=== PATIENT | female | born 1960 | race Caucasian/White ===

== ENCOUNTER → 2016-11-29 | Outpatient (CLI) | payer BC ==
[~2016-11-29] MED LIST: AMITRIPTYLINE H25 MG PO; FERRO-TIME325 MG PO; FLUCONAZOLE150 M1 PO; FOLIC ACID1 MG PO; METHOTREXATE2.5 MG PO; PREDNISONE5 MG PO; TRIFLUOPERAZINE1 MG PO; ZESTRIL10 MG PO
[2016-11-29 10:57] LABS: BASOPHIL% 0.2 % (0-2.5); EOSINOPHIL# 0.4 X10e3 (0-0.7); EOSINOPHIL% 8.4 % (0.0-7.0); HEMATOCRIT 34.5 % (35.0-45.0); HEMOGLOBIN 10.5 gm/dL (12.0-16.0); LYMPHOCYTE# 1.9 X10e3 (1.0-3.5); LYMPHOCYTE% 36.9 % (17.0-45.0); MEAN CELL VOLUME 71.4 FL (83-96); MEAN CORPUSCULAR HEMOGLOBIN 21.7 PG (28-34); MEAN CORPUSCULAR HGB CONC 30.3 g/dL (30-36); MEAN PLATELET VOLUME 10.5 FL (6.5-11.5); MONOCYTE# 0.5 X10e3 (0-1.0); NEUTROPHIL# 2.4 X10e3 (1.5-7.1); NEUTROPHIL% 45.5 % (40-75); PLATELET COUNT 224 X10e3 (140-420); RED BLOOD COUNT 4.83 X10e (3.90-5.30); RED CELL DISTRIBUTION WIDTH 18.8 % (11.0-15.5); WHITE BLOOD COUNT 5.2 X10e3 (4.0-10.5)
[2016-11-29 10:58] LABS: DIFF IND NO
[2016-11-29 11:14] LABS: ALT (SGPT) 17 U/L (10-40); AST (SGOT) 19 U/L (10-42)
[2016-11-29 11:25] LABS: CREATININE SERUM 0.7 mg/dL (0.6-1.4); GLOM FILT RATE Estimated 97.5 mL/min (>60)
== END | disposition home or self-care (01) ==
LOC: CLAB 10:05
PROVIDERS: Internal Medicine Rheumatology
DX: M06.041 Rheumatoid arthritis without rheumatoid factor, right hand (principal); M06.042 Rheumatoid arthritis without rheumatoid factor, left hand; M15.9 Polyosteoarthritis, unspecified; Z79.899 Other long term (current) drug therapy
CPT/HCPCS: 36415; 82565; 82955; 84450; 84460; 85025; 85652; 86140